=== PATIENT | female | born 1975 | race Asian ===

== ENCOUNTER 2018-01-21 18:23 | Inpatient (IN) | payer OTHER ==
[~2018-01-21] VITALS: Ht 160 cm; Wt 54.5 kg
[2018-01-21] MEDS ORDERED: SODIUM CHLORIDE FLUSH 10ML SYR IVF ONE (20:00)
[2018-01-21] MEDS ORDERED: SODIUM CHLORIDE 0.9% 1,000ML IVBOLUS ONE (20:00)
[2018-01-21 20:09] LABS: MEAN CORPUSCULAR HGB CONC 32.8 g/dL (32.4-35.8); MEAN CORPUSCULAR VOLUME 76.2 fL (80-100); MEAN PLATELET VOLUME 7.9 fL (7.4-10.4); PLATELET COUNT 474 x10^3/uL (130-400); RED BLOOD COUNT 3.99 x10^6/uL (3.82-5.3); RED CELL DISTRIBUTION WIDTH 15.3 % (9.6-15.2)
[2018-01-21 20:21] LABS: ALANINE AMINOTRANSFERASE 12 U/L (12-78); ALBUMIN 2.6 g/dL (3.4-5.0); ANION GAP 8 mmol/L (5-15); CALCIUM 7.9 mg/dL (8.5-10.1); CHLORIDE 98 mmol/L (98-107); CREATININE 0.65 mg/dL (0.55-1.02)
[2018-01-21 20:23] LABS: ALKALINE PHOSPHATASE 87 U/L (45-117); BILIRUBIN,TOTAL 0.4 mg/dL (0.2-1.0); TOTAL PROTEIN 7.3 g/dL (6.4-8.2)
[2018-01-21 20:39] LABS: HCG UR SG 1.013 (1.003-1.030)
[2018-01-21 20:40] LABS: MICROSCOPIC INDICATED
[2018-01-21] MEDS ORDERED: CIPR500T87 PO (20:46)
[2018-01-21 20:49] LABS: CULTURE INDICATED? NO
[2018-01-21 21:04] LABS: CLOSTRIDIUM DIFFICILE ANTIGEN NEGATIVE; CLOSTRIDIUM DIFFICILE TOXIN NEGATIVE (Negative)
[2018-01-21 21:06] LABS: MD YES
[2018-01-21 21:08] LABS: BAND#(MANUAL) 2.79 x10^3/uL; BANDS%(MANUAL) 18 % (0-7); EOS#(MANUAL) 0.93 x10^3/uL (0.0-0.4); EOS% (MANUAL) 6 % (1-7); LYMPHS% (MANUAL) 20 % (22-44); METAMYELOCYTES# (MANUAL) 0.16 x10^3/uL (0-0); METAMYELOCYTES% (MANUAL) 1 % (0-1); MONOS% (MANUAL) 9 % (2-9); SEG#(MANUAL) 7.13 x10^3/uL (1.8-6.8); SEGS% (MANUAL) 46 % (42-75)
[2018-01-21 21:09] LABS: ANISOCYTOSIS 1+; MICROCYTOSIS 1+; TOXIC GRAN 1+
[2018-01-21 21:10] LABS: <PLATELET ESTIMATE> INCREASED; <PLT MORPHOLOGY> NORMAL PLT MORPH
[2018-01-21] MEDS ORDERED: METRONIDAZOLE PMX 500MG/100ML 100 ML ONE (21:41)
[2018-01-21] MEDS ORDERED: METRONIDAZOLE PMX 500MG/100ML 100 ML IVPB ONE (22:00)
[2018-01-21] MEDS ORDERED: POTASSIUM CHLORIDE 40 MEQ in SODIUM CHLORIDE 0.9% 500 ML IV ONE (22:00)
[2018-01-21] MEDS: METRONIDAZOLE PMX 500MG/100ML 100 ML IV SCH (22:22)
[2018-01-21] MEDS ORDERED: ACETAMINOPHEN 325 MG TABLET PO PRN (22:30)
[2018-01-21 23:12] VITALS: BP 90/61
[2018-01-21] MEDS ORDERED: MAGNESIUM SULFATE PMX 2GM/50ML 50 ML IV ONE (23:30)
[2018-01-21] MEDS ORDERED: POTASSIUM CHLORIDE 20 MEQ TAB.ER.PRT PO ONE (23:30)
[2018-01-21] MEDS: NS + 20MEQ KCL 1,000 ML IV SCH (23:31)
[2018-01-21] MEDS: CIPROFLOXACIN/PMX 400MG/200ML 200 ML IV SCH (23:31)
[2018-01-22 00:53] VITALS: BP 91/61
[2018-01-22 05:50] LABS: MEAN CORPUSCULAR HEMOGLOBIN 24.9 pg (27.0-34.8); MEAN CORPUSCULAR VOLUME 75.5 fL (80-100); MEAN PLATELET VOLUME 7.7 fL (7.4-10.4); PLATELET COUNT 381 x10^3/uL (130-400); RED BLOOD COUNT 3.51 x10^6/uL (3.82-5.3); RED CELL DISTRIBUTION WIDTH 15.8 % (9.6-15.2)
[2018-01-22] MEDS: METRONIDAZOLE PMX 500MG/100ML 100 ML IV SCH ×3 (06:08→22:03)
[2018-01-22 06:09] LABS: MD YES
[2018-01-22 06:10] LABS: ALBUMIN 2.2 g/dL (3.4-5.0); ANION GAP 7 mmol/L (5-15); CALCIUM 7.5 mg/dL (8.5-10.1); CHLORIDE 106 mmol/L (98-107)
[2018-01-22 06:11] LABS: ANISOCYTOSIS 1+; BAND#(MANUAL) 1.63 x10^3/uL; BANDS%(MANUAL) 13 % (0-7); BASOS#(MANUAL) 0.13 x10^3/uL (0-0.1); BASOS% (MANUAL) 1 % (0-1); EOS#(MANUAL) 0.75 x10^3/uL (0.0-0.4); EOS% (MANUAL) 6 % (1-7); LYMPH#(MANUAL) 2.88 x10^3/uL (1-3.4); LYMPHS% (MANUAL) 23 % (22-44); MICROCYTOSIS 1+; MONOS#(MANUAL) 0.63 x10^3/uL (0.3-2.7); MONOS% (MANUAL) 5 % (2-9); MYELOCYTES# (MANUAL) 0.13 x10^3/uL (0-0); MYELOCYTES% (MANUAL) 1 % (0-0); SEG#(MANUAL) 6.38 x10^3/uL (1.8-6.8); SEGS% (MANUAL) 51 % (42-75)
[2018-01-22 06:12] LABS: <PLATELET ESTIMATE> ADEQUATE; <PLT MORPHOLOGY> NORMAL PLT MORPH
[2018-01-22 06:13] LABS: ALANINE AMINOTRANSFERASE 10 U/L (12-78); ALKALINE PHOSPHATASE 73 U/L (45-117); BILIRUBIN,TOTAL 0.3 mg/dL (0.2-1.0); TOTAL PROTEIN 6.3 g/dL (6.4-8.2)
[2018-01-22 08:45] LABS: CRYPTOSPORIDIUM ANTIGEN Negative (Negative)
[2018-01-22 09:39] VITALS: BP 86/59
[2018-01-22] MEDS: NS + 20MEQ KCL 1,000 ML IV SCH (11:41)
[2018-01-22] MEDS: CIPROFLOXACIN/PMX 400MG/200ML 200 ML IV SCH ×2 (11:42→23:18)
[2018-01-22 12:37] VITALS: BP 84/57
[2018-01-22] MEDS ORDERED: SODIUM CHLORIDE 0.9% 1,000ML IVBOLUS ONE (13:30)
[2018-01-22] MEDS: SIMETHICONE 125 MG CHEW TAB PO PRN (17:24)
[2018-01-22 20:13] VITALS: BP 92/60
[2018-01-23] MEDS: SIMETHICONE 125 MG CHEW TAB PO PRN ×2 (00:12→11:24)
[2018-01-23 01:58] VITALS: BP 102/70
[2018-01-23] MEDS: NS + 20MEQ KCL 1,000 ML IV SCH ×2 (02:39→15:36)
[2018-01-23] MEDS: METRONIDAZOLE PMX 500MG/100ML 100 ML IV SCH ×3 (06:10→22:09)
[2018-01-23 06:15] VITALS: BP 106/71
[2018-01-23 09:46] LABS: MEAN CORPUSCULAR HEMOGLOBIN 24.7 pg (27.0-34.8); MEAN CORPUSCULAR HGB CONC 32.2 g/dL (32.4-35.8); MEAN CORPUSCULAR VOLUME 76.7 fL (80-100); MEAN PLATELET VOLUME 7.7 fL (7.4-10.4); PLATELET COUNT 467 x10^3/uL (130-400); RED BLOOD COUNT 3.79 x10^6/uL (3.82-5.3); RED CELL DISTRIBUTION WIDTH 16.2 % (9.6-15.2)
[2018-01-23 09:51] LABS: ANION GAP 9 mmol/L (5-15); CALCIUM 7.7 mg/dL (8.5-10.1); CHLORIDE 107 mmol/L (98-107); CREATININE 0.52 mg/dL (0.55-1.02)
[2018-01-23 10:04] LABS: MD YES
[2018-01-23 10:08] LABS: BAND#(MANUAL) 2.39 x10^3/uL; BANDS%(MANUAL) 18 % (0-7); EOS#(MANUAL) 0.67 x10^3/uL (0.0-0.4); EOS% (MANUAL) 5 % (1-7); LYMPH#(MANUAL) 2.26 x10^3/uL (1-3.4); LYMPHS% (MANUAL) 17 % (22-44); METAMYELOCYTES# (MANUAL) 0.27 x10^3/uL (0-0); METAMYELOCYTES% (MANUAL) 2 % (0-1); MONOS#(MANUAL) 0.53 x10^3/uL (0.3-2.7); MONOS% (MANUAL) 4 % (2-9); MYELOCYTES# (MANUAL) 0.13 x10^3/uL (0-0); MYELOCYTES% (MANUAL) 1 % (0-0); SEG#(MANUAL) 7.05 x10^3/uL (1.8-6.8); SEGS% (MANUAL) 53 % (42-75)
[2018-01-23 10:09] LABS: ANISOCYTOSIS 1+; MICROCYTOSIS 1+
[2018-01-23 10:11] LABS: <PLATELET ESTIMATE> INCREASED
[2018-01-23 10:12] LABS: <PLT MORPHOLOGY> NORMAL PLT MORPH
[2018-01-23] MEDS ORDERED: POTASSIUM CHLORIDE 20 MEQ TAB.ER.PRT PO ONE (10:30)
[2018-01-23] MEDS: CIPROFLOXACIN/PMX 400MG/200ML 200 ML IV SCH ×2 (11:24→23:38)
[2018-01-23 13:12] VITALS: BP 101/68
[2018-01-23 19:20] VITALS: BP 92/63
[2018-01-23] MEDS ORDERED: OMNIPAQUE 350 MG/ML, 75ML BOTTLE ONE (23:31)
[2018-01-24 01:49] LABS: OCCULT BLOOD POSITIVE (NEGATIVE)
[2018-01-24 01:53] VITALS: BP 103/71
[2018-01-24] MEDS: NS + 20MEQ KCL 1,000 ML IV SCH (04:42)
[2018-01-24] MEDS: METRONIDAZOLE PMX 500MG/100ML 100 ML IV SCH ×3 (06:07→22:44)
[2018-01-24 06:29] VITALS: BP 109/70
[2018-01-24] MEDS: CEFTRIAXONE PMX 1GM/50ML 50 ML IV SCH (09:42)
[2018-01-24] MEDS: IRON SUCROSE COMPLEX 100MG/5ML IV SCH (09:42)
[2018-01-24 12:09] VITALS: BP 108/72
[2018-01-24] MEDS ORDERED: SODIUM CHLORIDE 0.45% 1,000 ML IV SCH (13:00)
[2018-01-24 13:46] LABS: MEAN CORPUSCULAR HEMOGLOBIN 24.9 pg (27.0-34.8); MEAN CORPUSCULAR HGB CONC 32.7 g/dL (32.4-35.8); MEAN CORPUSCULAR VOLUME 76.1 fL (80-100); MEAN PLATELET VOLUME 7.6 fL (7.4-10.4); PLATELET COUNT 441 x10^3/uL (130-400); RED BLOOD COUNT 3.68 x10^6/uL (3.82-5.3); RED CELL DISTRIBUTION WIDTH 16.1 % (9.6-15.2)
[2018-01-24 13:59] LABS: ALANINE AMINOTRANSFERASE 19 U/L (12-78); ALBUMIN 2.1 g/dL (3.4-5.0); ANION GAP 10 mmol/L (5-15); CALCIUM 7.5 mg/dL (8.5-10.1); CHLORIDE 105 mmol/L (98-107); CREATININE 0.39 mg/dL (0.55-1.02)
[2018-01-24 14:01] LABS: ALKALINE PHOSPHATASE 70 U/L (45-117); BILIRUBIN,TOTAL 0.2 mg/dL (0.2-1.0); TOTAL PROTEIN 6.1 g/dL (6.4-8.2)
[2018-01-24 14:05] LABS: MD YES
[2018-01-24 14:08] LABS: ANISOCYTOSIS 1+; BAND#(MANUAL) 0.52 x10^3/uL; BANDS%(MANUAL) 3 % (0-7); EOS#(MANUAL) 1.55 x10^3/uL (0.0-0.4); EOS% (MANUAL) 9 % (1-7); LYMPH#(MANUAL) 2.58 x10^3/uL (1-3.4); LYMPHS% (MANUAL) 15 % (22-44); MICROCYTOSIS 1+; MONOS% (MANUAL) 7 % (2-9); SEG#(MANUAL) 11.35 x10^3/uL (1.8-6.8); SEGS% (MANUAL) 66 % (42-75); TOXIC GRAN 1+
[2018-01-24 14:09] LABS: <PLATELET ESTIMATE> INCREASED; <PLT MORPHOLOGY> NORMAL PLT MORPH
[2018-01-24] MEDS ORDERED: POTASSIUM CHLORIDE 20 MEQ TAB.ER.PRT PO ONE (15:00)
[2018-01-24] MEDS: POTASSIUM CHLORIDE 20 MEQ in SODIUM CHLORIDE 0.45% 1,000 ML IV SCH (16:07)
[2018-01-24] MEDS ORDERED: MAGNESIUM SULFATE PMX 2GM/50ML 50 ML IV ONE (16:30)
[2018-01-24 17:39] LABS: OCCULT BLOOD POSITIVE (NEGATIVE)
[2018-01-24] MEDS: ONDANSETRON ODT 4 MG PO PRN (17:54)
[2018-01-24 19:30] VITALS: BP 90/62
[2018-01-25 01:52] VITALS: BP 95/65
[2018-01-25 04:56] LABS: MEAN CORPUSCULAR HEMOGLOBIN 25.3 pg (27.0-34.8); MEAN CORPUSCULAR HGB CONC 33.1 g/dL (32.4-35.8); MEAN CORPUSCULAR VOLUME 76.4 fL (80-100); MEAN PLATELET VOLUME 7.9 fL (7.4-10.4); PLATELET COUNT 474 x10^3/uL (130-400); RED BLOOD COUNT 3.61 x10^6/uL (3.82-5.3); RED CELL DISTRIBUTION WIDTH 16.1 % (9.6-15.2)
[2018-01-25 05:09] LABS: CHLORIDE 105 mmol/L (98-107)
[2018-01-25 05:22] LABS: ALANINE AMINOTRANSFERASE 22 U/L (12-78); ALBUMIN 2.1 g/dL (3.4-5.0); ALKALINE PHOSPHATASE 70 U/L (45-117); ANION GAP 7 mmol/L (5-15); BILIRUBIN,TOTAL 0.3 mg/dL (0.2-1.0); CALCIUM 7.5 mg/dL (8.5-10.1); CREATININE 0.37 mg/dL (0.55-1.02); TOTAL PROTEIN 6.1 g/dL (6.4-8.2)
[2018-01-25 05:40] LABS: HCT (SEDRATE) 27.6 % (34.6-47.8); MD YES
[2018-01-25 05:49] LABS: ANISOCYTOSIS 1+; BAND#(MANUAL) 1.27 x10^3/uL; BANDS%(MANUAL) 8 % (0-7); EOS#(MANUAL) 0.16 x10^3/uL (0.0-0.4); EOS% (MANUAL) 1 % (1-7); LYMPH#(MANUAL) 1.75 x10^3/uL (1-3.4); LYMPHS% (MANUAL) 11 % (22-44); MICROCYTOSIS 1+; MONOS% (MANUAL) 5 % (2-9); SEG#(MANUAL) 11.93 x10^3/uL (1.8-6.8); SEGS% (MANUAL) 75 % (42-75)
[2018-01-25 05:50] LABS: <PLATELET ESTIMATE> INCREASED; <PLT MORPHOLOGY> NORMAL PLT MORPH; TOXIC GRAN 1+
[2018-01-25] MEDS: METRONIDAZOLE PMX 500MG/100ML 100 ML IV SCH ×2 (06:03→14:30)
[2018-01-25] MEDS: POTASSIUM CHLORIDE 20 MEQ in SODIUM CHLORIDE 0.45% 1,000 ML IV SCH ×2 (06:31→14:00)
[2018-01-25 07:09] VITALS: BP 99/76
[2018-01-25] MEDS: IRON SUCROSE COMPLEX 100MG/5ML IV SCH (10:54)
[2018-01-25] MEDS: CEFTRIAXONE PMX 1GM/50ML 50 ML IV SCH (10:54)
[2018-01-25] MEDS ORDERED: IRON SUCROSE COMPLEX 100MG/5ML IV ONE (11:30)
[2018-01-25] MEDS ORDERED: METR500T PO ×2 (12:25→17:15)
[2018-01-25] MEDS ORDERED: CIPR500T87 PO (12:25)
[2018-01-25] MEDS ORDERED: FERR325T18 PO (12:26)
[2018-01-25 12:57] VITALS: BP 96/67
[2018-01-25] MEDS: ONDANSETRON ODT 4 MG PO PRN (13:17)
== END 2018-01-25 14:45 | disposition home or self-care (01) | DRG 871 ==
LOC: ED 21:55 → EDIP 22:18 → 4EST 22:57 → DCLOUNGE 01-25 14:31
PROVIDERS: ADMIT Internal Medicine; ATTEND Internal Medicine
PROC: 0T9B70Z Drainage of Bladder with Drainage Device, Via Natural or Artificial Opening (ICD-10-PCS; principal; 2018-01-21)
DX: A41.9 Sepsis, unspecified organism (principal); E43 Unspecified severe protein-calorie malnutrition; E87.1 Hypo-osmolality and hyponatremia; R65.20 Severe sepsis without septic shock; D50.9 Iron deficiency anemia, unspecified; K52.9 Noninfective gastroenteritis and colitis, unspecified; E86.0 Dehydration; E87.6 Hypokalemia; Z68.21 Body mass index [BMI] 21.0-21.9, adult; Z90.49 Acquired absence of other specified parts of digestive tract; D47.3 Essential (hemorrhagic) thrombocythemia
CPT/HCPCS: 36415; 74177; 80048; 80053; 81001; 81025; 82272; 82728; 83540; 83550; 83605; 83735; 84100; 84145; 85025; 85651; 86140; 87040; 87046; 87324; 87328; 87329; 89055; 96361; 96374; 96375; 99285; G0378; J0696; J0744; J1756; J3480; Q0162; Q9967; J3475; J7030; J7040